=== PATIENT | male | born 1975 | race Two or more races ===

== ENCOUNTER 2021-12-26 12:28 | Outpatient (CLI) | payer OTHER | END 2021-12-26 12:29 | disposition home or self-care (01) | LOC: LAB 12:28 | DX: E03.9 Hypothyroidism, unspecified (principal); E66.9 Obesity, unspecified; R97.20 Elevated prostate specific antigen [PSA]; I10 Essential (primary) hypertension; E11.9 Type 2 diabetes mellitus without complications ==